=== PATIENT | female | born 1985 | race Caucasian/White ===

== ENCOUNTER 2017-11-21 10:11 | Emergency (ER) | payer BC, OTHER ==
[2017-11-21 10:45] LABS: Urine Blood TRACE (NEG); Urine Glucose NEGATIVE (NEG); Urine Protein NEGATIVE (NEG); Urine Specific Gravity 1.015 (1.005-1.030)
[2017-11-21] MEDS ORDERED: NA CHLORIDE 0.9% 1,000 ML ONE (10:56)
[2017-11-21 11:13] LABS: Absolute Lymphocytes (CBC) 3.1 K/uL (0.7-4.9); Absolute Monocytes 0.5 K/uL (0.1-1.3); Absolute Neutrophil 5.2 K/uL (1.8-8.0); Basophils % 0.7 % (0-1.3); Eosinophils % 1.6 % (0-4.4); Hematocrit 39.3 % (36.0-45.0); Lymphocytes % 34.3 % (15.3-44.8); MCH 29.8 pg (27.0-35.0); Monocytes % 5.9 % (3.3-12.3); RBC Red Blood Cell Count 4.57 M/uL (3.86-4.86)
--- NOTE | 2017-11-21 11:17 | RAD REPORT ---
EXAM DESCRIPTION: RAD - Chest Single View - 11/21/2017 11:12 am CLINICAL HISTORY: CHEST PAIN Chest pain. COMPARISON: No comparisons FINDINGS: Portable technique limits examination quality. The lungs are grossly clear. The heart is normal in size. No displaced fractures. IMPRESSION: No acute intrathoracic process suspected.
[2017-11-21 11:25] LABS: ALT/SGPT 16 U/L (12-78); AST/SGOT 15 U/L (15-37); Albumin 3.8 g/dL (3.4-5.0); Alkaline Phosphatase 74 U/L (45-117); BUN Blood Urea Nitrogen 12 mg/dL (7-18); Bicarbonate 26 mmol/L (21-32); Bilirubin Direct 0.1 mg/dL (0-0.2); Bilirubin Total 0.4 mg/dL (0.2-1.0); CKMB Creatine Kinase MB < 1.0 ng/mL (0.3-3.6); Creatine Phosphokinase 44 U/L (26-192); Glucose Level 93 mg/dL (74-106); Magnesium 2.2 mg/dL (1.8-2.4); NT PRO-BNP 64 pg/mL (<125); Potassium 3.9 mmol/L (3.5-5.1); Sodium Level 140 mmol/L (136-145)
[2017-11-21 11:28] LABS: Barbiturates NEGATIVE (NEGATIVE); Benzodiazepines NEGATIVE (NEGATIVE); Cocaine NEGATIVE (NEGATIVE); METHAMPHETAM NEGATIVE (NEGATIVE); Methadone NEGATIVE (NEGATIVE); Opiates NEGATIVE (NEGATIVE); Phencyclidine NEGATIVE (NEGATIVE); THC Cannibis NEGATIVE (NEGATIVE)
[2017-11-21 11:50] LABS: Protime INR 1.07
--- NOTE | 2017-11-21 12:10 | EKG ---
Test Date: 2017-11-21 Test Time: 10:20:41 Operations Research Group Manager: JAM MEASUREMENT RESULTS: Intervals: Rate: 94 NC: 112 QRSD: 78 QT: 346 QTc: 432 [place]: P: 71 NC: 112 QRS: 53 T: 5 INTERPRETIVE STATEMENTS: Normal sinus rhythm T wave abnormality, consider anterior ischemia Abnormal ECG No previous ECG available for comparison Electronically Signed On 11-21-17 12:10:04 CDT by Kane Del Valle
--- NOTE | 2017-11-21 12:11 | RAD REPORT ---
EXAM DESCRIPTION: RAD - Abdomen 1 View (KUB) - 11/21/2017 12:05 pm CLINICAL HISTORY: Left-sided abdominal pain and flank pain COMPARISON: None. FINDINGS: Bowel gas pattern is non-specific. Air-filled, nondilated small bowel loops are present. N o obstruction, free air or pneumatosis. Moderate volume of stool volume fills but does not dilate the left side of the colon. Small phleboliths seen in the lower right pelvis. No renal or ureteral calcu vargas suspected. No significant bony findings IMPRESSION: KUB examination, as detailed above, without significant or suspicious finding. Nonspecif ic enteritis is possible.
[2017-11-21] MEDS ORDERED: MORPHINE 4 MG/ML SYR ONE (12:16)
[2017-11-21] MEDS ORDERED: ONDANSETRON 4 MG/2 ML VIAL ONE (12:16)
--- NOTE | 2017-11-21 12:16 | EDPHYS ---
Physician Documentation [facility] Name: Shayy Land Age: 32 yrs Sex: Female : 1985 Arrival Date: 11/21/2017 Time: 10:15 Bed 17 Private MD: None, None ED Physician Lobo Lugo HPI: 11/21 10:48 This 32 yrs old Female presents to ER via Ambulatory with complaints of Chest kav Pressure, Numbness Of Arm, Abdominal Pain, Jaw Pain. 10:48 The patient or guardian reports chest pain that is located primarily in the left kav breast. The patient presents with abdominal pain in the left lower quadrant. Onset: The symptoms/episode began/occurred acutely, 2 day(s) ago. The symptoms radiate to the left arm. 10:49 Associated signs and symptoms: Pertinent negatives: diarrhea, fever. The chest pain is kav described as a pressure. Duration: The patient or guardian reports a single episode, that is still ongoing. Severity of pain: At its worst the pain was mild just prior to arrival. The patient has not experienced similar symptoms in the past. The patient has not recently seen a physician. 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 - Social history:: Smoking status: Patient/guardian denies using tobacco, Patient/guardian denies using alcohol. - Ebola Screening: : Patient negative for fever greater than or equal to 101.5 degrees Fahrenheit, and additional compatible Ebola Virus Disease symptoms Patient denies exposure to infectious person Patient denies travel to an Ebola-affected area in the 21 days before illness onset. - Family history:: not pertinent. - Hospitalizations: : No recent hospitalization is reported. ROS: 11:00 Constitutional: Negative for fever, chills, and weight loss, Eyes: Negative for injury, kav pain, redness, and discharge, ENT: Negative for injury, pain, and discharge, Neck: Negative for injury, pain, and swelling, Respiratory: Negative for shortness of breath, cough, wheezing, and pleuritic chest pain, Back: Negative for injury and pain, : Negative for injury, bleeding, discharge, and swelling, MS/Extremity: Negative for injury and deformity, Skin: Negative for injury, rash, and discoloration, Neuro: Negative for headache, weakness, numbness, tingling, and seizure, Psych: Negative for depression, anxiety, suicide ideation, homicidal ideation, and hallucinations, Allergy/Immunology: Negative for hives, rash, and allergies, Endocrine: Negative for neck swelling, polydipsia, polyuria, polyphagia, and marked weight changes, Hematologic/Lymphatic: Negative for swollen nodes, abnormal bleeding, and unusual bruising. 11:00 Cardiovascular: Positive for chest pain, of the left breast. 11:00 Abdomen/GI: Positive for abdominal pain, of the left lower quadrant. Exam: 11:00 Constitutional: This is a well developed, well nourished patient who is awake, alert, kav and in no acute distress. Head/Face: Normocephalic, atraumatic. Eyes: Pupils equal round and reactive to light, extra-ocular motions intact. Lids and lashes normal. Conjunctiva and sclera are non-icteric and not injected. Cornea within normal limits. Periorbital areas with no swelling, redness, or edema. ENT: Nares patent. No nasal discharge, no septal abnormalities noted. Tympanic membranes are normal and external auditory canals are clear. Oropharynx with no redness, swelling, or masses, exudates, or evidence of obstruction, uvula midline. Mucous membranes moist. Neck: Trachea midline, no thyromegaly or masses palpated, and no cervical lymphadenopathy. Supple, full range of motion without nuchal rigidity, or vertebral point tenderness. No Meningismus. Chest/axilla: Normal chest wall appearance and motion. Nontender with no deformity. No lesions are appreciated. Respiratory: Lungs have equal breath sounds bilaterally, clear to auscultation and percussion. No rales, rhonchi or wheezes noted. No increased work of breathing, no retractions or nasal flaring. Back: No spinal tenderness. No costovertebral tenderness. Full range of motion. Skin: Warm, dry with normal turgor. Normal color with no rashes, no lesions, and no evidence of cellulitis. MS/ Extremity: Pulses equal, no cyanosis. Neurovascular intact. Full, normal range of motion. Neuro: Awake and alert, GCS 15, oriented to person, place, time, and situation. Cranial nerves II-XII grossly intact. Motor strength 5/5 in all extremities. Sensory grossly intact. Cerebellar exam normal. Normal gait. Psych: Awake, alert, with orientation to person, place and time. Behavior, mood, and affect are within normal limits. 11:00 Cardiovascular: Rate: normal, Rhythm: regular, Pulses: Pulses are 1+ in right radial artery, right dorsalis pedis artery, left radial artery, left dorsalis pedis artery, left carotid pulse and right carotid pulse. 11:00 ECG was reviewed by the Attending Physician. NSR Vital Signs: 10:23 BP 149 / 97; Pulse 111; Resp 18; Temp 98.9(O); Pulse Ox 98% on R/A; Weight 71.21 kg; hj Height 5 ft. 4 in. (162.56 cm); Pain 5/10; 11:06 BP 105 / 67; Pulse 83; Resp 20; Pulse Ox 100% on 2 lpm NC; Pain 3/10; ed1 12:11 BP 129 / 68; Pulse 82; Resp 18; Pulse Ox 98% on R/A; mh5 12:56 BP 105 / 76; Pulse 82; Resp 20; Temp 97.9(O); Pulse Ox 100% on R/A; Pain 0/10; aj1 10:23 Body Mass Index 26.95 (71.21 kg, 162.56 cm) MDM: 10:42 Medical screening is not applicable. kav 11:05 Data reviewed: vital signs, nurses notes. ED course: HEART Score 0. 11/21 10:42 Order name: Basic Metabolic Panel; Complete Time: 11:38 11/21 10:42 Order name: CBC with Diff; Complete Time: 11:38 11/21 10:42 Order name: Ckmb; Complete Time: 11:38 11/21 10:42 Order name: CPK; Complete Time: 11:38 11/21 10:42 Order name: LFT's; Complete Time: 11:38 11/21 10:42 Order name: Magnesium; Complete Time: 11:38 11/21 10:42 Order name: NT PRO-BNP; Complete Time: 11:38 11/21 10:42 Order name: PT-INR; Complete Time: 12:14 11/21 10:42 Order name: Ptt, Activated; Complete Time: 12:14 11/21 10:42 Order name: Troponin (emerg Dept Use Only); Complete Time: 11:38 11/21 10:44 Order name: Urine Dipstick--Ancillary (enter results); Complete Time: 10:53 eb 11/21 10:44 Order name: Urine --Ancillary (enter results); Complete Time: 10:53 eb 11/21 10:52 Order name: Urine Drug Screen 11/21 10:53 Order name: Urine Drug Screen; Complete Time: 11:38 EDOH 11/21 10:42 Order name: Urine Test (obtain specimen); Complete Time: 10:55 11/21 10:42 Order name: XRAY Chest (1 view); Complete Time: 11:38 11/21 10:42 Order name: EKG; Complete Time: 10:43 11/21 10:42 Order name: Cardiac monitoring; Complete Time: 10:11/21 10:42 Order name: EKG - Nurse/Tech; Complete Time: 11:28 11/21 10:42 Order name: IV Saline Lock; Complete Time: 11:11/21 10:42 Order name: Labs collected and sent; Complete Time: 11:11/21 10:42 Order name: O2 Per Protocol; Complete Time: 10:11/21 10:42 Order name: O2 Sat Monitoring; Complete Time: 10:11/21 10:42 Order name: Urine Dipstick-Ancillary (obtain specimen); Complete Time: 10:11/21 11:40 Order name: Abdomen 1 View (KUB) XRAY; Complete Time: 12:14 kav EC:00 Rate is 94 beats/min. Rhythm is regular. QRS [place] is Normal. NH interval is normal. QRS kav interval is normal. QT interval is normal. No Q waves. T waves are Normal. No ST changes noted. Clinical impression: NSR w/ Non-specific ST/T Changes. Administered Medications: 11:03 Drug: NS 0.9% 1000 ml Route: IV; Rate: 1000 ml; Site: right antecubital; ed1 12:07 Follow up: IV Status: Completed infusion; IV Intake: 1000ml ed1 12:19 Drug: morphine 2 mg Route: IVP; Site: right antecubital; ss 12:58 Follow up: Response: No adverse reaction; Pain is decreased aj1 12:19 Drug: Zofran 4 mg Route: IVP; Site: right antecubital; ss 12:57 Follow up: Response: No adverse reaction; Nausea is decreased aj1 Disposition: 15:33 Co-signature as Attending Physician, Lobo Lugo MD I agree with the assessment and kdr plan of care. Disposition: 11/21/17 12:16 Discharged to Home. Impression: Chest pain, unspecified, Infectious gastroenteritis and colitis, unspecified. - Condition is Stable. - Discharge Instructions: Nonspecific Chest Pain, Chest Wall Pain, Viral Gastroenteritis, Adult, [id number]. - Prescriptions for Ibuprofen 800 mg Oral Tablet - take 1 tablet by ORAL route every 8 hours As needed take with food; 30 tablet. Flagyl 500 mg Oral Tablet - take 1 tablet by ORAL route every 8 hours for 7 days; 21 tablet. Cipro 500 mg Oral Tablet - take 1 tablet by ORAL route every 12 hours for 7 days; 14 tablet. - Medication Reconciliation Form, Thank You Letter, Antibiotic Education, Prescription Opioid Use form. - Follow up: Private Physician; When: 2 - 3 days; Reason: Recheck today's complaints, Continuance of care, Re-evaluation by your physician. Follow up: Kane Del Valle; When: 2 - 3 days; Reason: Recheck today's complaints, Continuance of care, Re-evaluation by your physician. - Problem is new. - Symptoms have improved. Signatures: Dispatcher [employer] EDMS Destiney Rivers RN RN aj1 Lobo Lugo MD MD kdr Vern, Katherine, TRACK SUBWAY REPAIR SUPERVISOR TRACK SUBWAY REPAIR SUPERVISOR Debi Khan RN RN ss Yeimi Fofana LVN SHEET METAL MECHANIC ed1 Arjun Suggs RN RN Corrections: (The following items were deleted from the chart) 12:58 12:16 11/21/2017 12:16 Discharged to Home. Impression: Chest pain, unspecified; aj1 Infectious gastroenteritis and colitis, unspecified. Condition is Stable. Discharge Instructions: Nonspecific Chest Pain, Chest Wall Pain. Prescriptions for Ibuprofen 800 mg Oral Tablet - take 1 tablet by ORAL route every 8 hours As needed take with food; 30 tablet, Prilosec 20 mg Oral Capsule - take 1 capsule by ORAL route once daily; 10 capsule. and Forms are Medication Reconciliation Form, Thank You Letter, Antibiotic Education, Prescription Opioid Use. Follow up: Private Physician; When: 2 - 3 days; Reason: Recheck today's complaints, Continuance of care, Re-evaluation by your physician. Follow up: Kane Del Valle; When: 2 - 3 days; Reason: Recheck today's complaints, Continuance of care, Re-evaluation by your physician. Problem is new. Symptoms have improved. kav
--- NOTE | 2017-11-21 12:16 | ER ---
Nurse's Notes [facility] Name: Shayy Land Age: 32 yrs Sex: Female : 1985 Arrival Date: 11/21/2017 Time: 10:15 Bed 17 Private MD: None, None Diagnosis: Chest pain, unspecified;Infectious gastroenteritis and colitis, unspecified Presentation: 11/21 10:17 Presenting complaint: Patient states: my tooth on my L side and L jaw started hurting hj for 2 weeks and radiates to the L side of my neck; 3-4 days ago, i feel this on and off pressure on my chest and sometimes that pain radiates to my L arm; sometimes it seems like its weak and numb; reports on an off SOB;. Transition of care: patient was not received from another setting of care. Onset of symptoms was November 21, 2017. Risk Assessment: Do you want to hurt yourself or someone else? Patient reports no desire to harm self or others. Initial Sepsis Screen: Does the patient meet any 2 criteria? No. Patient's initial sepsis screen is negative. Does the patient have a suspected source of infection? No. Patient's initial sepsis screen is negative. Care prior to arrival: None. 10:17 Method Of Arrival: Ambulatory 10:17 Acuity: RANCHO 3 Triage Assessment: 10:21 General: Appears in no apparent distress. uncomfortable, Behavior is calm, cooperative, hj appropriate for age. Pain: Complains of pain in chest Pain radiates to left arm Pain currently is 5 out of 10 on a pain scale. Cardiovascular: Reports chest pain, Capillary refill < 3 seconds Patient's skin is warm and dry. 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 - Social history:: Smoking status: Patient/guardian denies using tobacco, Patient/guardian denies using alcohol. - Ebola Screening: : Patient negative for fever greater than or equal to 101.5 degrees Fahrenheit, and additional compatible Ebola Virus Disease symptoms Patient denies exposure to infectious person Patient denies travel to an Ebola-affected area in the 21 days before illness onset. - Family history:: not pertinent. - Hospitalizations: : No recent hospitalization is reported. Screenin:22 Abuse screen: Denies threats or abuse. Denies injuries from another. Nutritional hj screening: No deficits noted. Tuberculosis screening: No symptoms or risk factors identified. Fall Risk None identified. Assessment: 10:22 Pain: Pain began 2-3 days ago. hj 10:40 General: Appears uncomfortable, Behavior is calm, cooperative. Pain: Complains of pain ed1 in left ear, chest and left arm Pain does not radiate. Pain currently is 2 out of 10 on a pain scale. Quality of pain is described as sharp, stabbing, Pain began 2-3 days ago. Is intermittent, episodic. Neuro: Level of Consciousness is awake, alert, obeys commands, Oriented to person, place, time, situation, Production Supervisor are equal bilaterally Moves all extremities. Full function Gait is steady, Speech is normal, Facial symmetry appears normal, Pupils are PERRLA, Numbness in left upper arm Reports numbness in left upper arm Denies blurred vision dizziness, headache. Cardiovascular: Reports chest pain, Denies diaphoresis, fatigue, lightheadedness, nausea, palpitations, shortness of breath, syncope, vomiting, Heart tones S1 S2 present Capillary refill < 3 seconds in bilateral fingers Clubbing of nail beds is absent JVD is absent Patient's skin is warm and dry. Rhythm is regular Chest pain is described as mild, quality is pressure, radiates to left arm(s). Respiratory: Airway is patent Respiratory effort is even, unlabored, Respiratory pattern is regular, symmetrical, Breath sounds are clear bilaterally. Denies cough, shortness of breath. GI: Patient currently denies diarrhea, nausea, vomiting. : No signs and/or symptoms were reported regarding the genitourinary system. EENT: Reports left ear pain. Derm: Skin is intact, is healthy with good turgor, Skin is dry, Skin is normal, Skin temperature is warm. 10:45 Reassessment: Upon initial IV attempt pt became light headed and diaphoretic. BP 76/39 ed1 HR 129. Pt placed in supine, cool compress applied, O2 applied. 10:45 General: The previous assessment is accurate. Call light remains within reach. . ss 11:06 Reassessment: Patient and/or family updated on plan of care and expected duration. Pain ed1 level reassessed. Patient is alert, oriented x 3, equal unlabored respirations, skin warm/dry/pink. Respiratory: Airway is patent Respiratory effort is even, unlabored, Respiratory pattern is regular, symmetrical. Derm: Skin is pink, warm \T\ dry. 12:56 Reassessment: Patient appears in no apparent distress at this time. Patient and/or aj1 family updated on plan of care and expected duration. Pain level reassessed. Patient is alert, oriented x 3, equal unlabored respirations, skin warm/dry/pink. Patient denies pain at this time. Patient states feeling better. Patient states symptoms have improved. Vital Signs: 10:23 BP 149 / 97; Pulse 111; Resp 18; Temp 98.9(O); Pulse Ox 98% on R/A; Weight 71.21 kg; hj Height 5 ft. 4 in. (162.56 cm); Pain 5/10; 11:06 BP 105 / 67; Pulse 83; Resp 20; Pulse Ox 100% on 2 lpm NC; Pain 3/10; ed1 12:11 BP 129 / 68; Pulse 82; Resp 18; Pulse Ox 98% on R/A; mh5 12:56 BP 105 / 76; Pulse 82; Resp 20; Temp 97.9(O); Pulse Ox 100% on R/A; Pain 0/10; aj1 10:23 Body Mass Index 26.95 (71.21 kg, 162.56 cm) ED Course: 10:15 Patient arrived in ED. mr 10:16 None, None is Private Physician. mr 10:21 Triage completed. hj 10:22 Arm band placed on right wrist. hj 10:22 front desk monitor on. Pulse ox on. NIBP on. hj 10:23 Patient has correct armband on for positive identification. Placed in gown. Bed in low hj position. Call light in reach. Side rails up X 1. 10:23 Patient maintains SpO2 saturation greater than 95% on room air. hj 10:28 EKG done, by rv repair technician. reviewed by Lobo Lugo MD. at1 10:32 Diana Fuentes FNP is PHCP. kav 10:33 Lobo Lugo MD is Attending Physician. kav 10:36 Yeimi Fofana LVN is Primary Nurse. ed1 10:55 Troponin (emerg Dept Use Only) Sent. mh5 10:56 Initial lab(s) drawn, by me, sent to lab. Missed attempt(s): 20 gauge in left [facility] antecubital area. 10:57 Placed in gown. Bed in low position. Call light in reach. Side rails up X2. Warm [facility] blanket given. front desk monitor on. Pulse ox on. NIBP on. 11:07 Urine Drug Screen Sent. 5 11:07 Urine Drug Screen Sent. [facility] 11:07 NT PRO-BNP Sent. [facility] 11:07 Magnesium Sent. [facility] 11:07 LFT's Sent. [facility] 11:07 CPK Sent. [facility] 11:07 Ckmb Sent. [facility] 11:07 CBC with Diff Sent. [facility] 11:07 Basic Metabolic Panel Sent. [facility] 11:07 Initial lab(s) drawn, by ED staff, sent to lab. Inserted saline lock: 20 gauge in right ed1 antecubital area, using aseptic technique. Blood collected. 11:11 X-ray completed. Portable x-ray completed in exam room. Patient tolerated procedure jb2 well. 11:12 XRAY Chest (1 view) In Process Unspecified. EDMS 11:57 X-ray completed. Patient moved to radiology via wheelchair. jb2 12:02 Abdomen 1 View (KUB) XRAY In Process Unspecified. EDMS 12:02 X-ray completed. Patient tolerated procedure well. jb2 12:03 Patient moved back from radiology. jb2 12:15 Kane Del Valle MD is Referral Physician. kav 12:56 No provider procedures requiring assistance completed. IV discontinued, intact, aj1 bleeding controlled, No redness/swelling at site. Pressure dressing applied. Administered Medications: 11:03 Drug: NS 0.9% 1000 ml Route: IV; Rate: 1000 ml; Site: right antecubital; ed1 12:07 Follow up: IV Status: Completed infusion; IV Intake: 1000ml ed1 12:19 Drug: morphine 2 mg Route: IVP; Site: right antecubital; ss 12:58 Follow up: Response: No adverse reaction; Pain is decreased aj1 12:19 Drug: Zofran 4 mg Route: IVP; Site: right antecubital; ss 12:57 Follow up: Response: No adverse reaction; Nausea is decreased aj1 Intake: 12:07 IV: 1000ml; Total: 1000ml. ed1 Outcome: 12:16 Discharge ordered by MD. oconnell 12:56 Discharged to home ambulatory, with family. aj1 12:56 Condition: good 12:56 Discharge instructions given to patient, Instructed on discharge instructions, follow up and referral plans. medication usage, Demonstrated understanding of instructions, follow-up care, medications, Prescriptions given X 3. 12:58 Patient left the ED. aj1 Signatures: Dispatcher [employer] EDMS Destiney Rivers, RN RN aj1 Diana Fuentes, LINE DEPARTMENT SUPERVISOR LINE DEPARTMENT SUPERVISOR Reyna Romero mr Cai Chepe jb2 Debi Mcbride, RN RN Yeimi Fofana, LABEL REWINDER LABEL REWINDER ed1 Zhane hurst, measurement and sensing technician EKG Tat1 Arjun Suggs, RN RN Reyna Kennedy [facility] Corrections: (The following items were deleted from the chart) 11:58 11:57 Patient taken to ultrasound. via wheelchair. jb2 jb2
== END 2017-11-21 12:58 | disposition home or self-care (01) ==
LOC: ER 10:11
DX: A09 Infectious gastroenteritis and colitis, unspecified (principal)
CPT/HCPCS: 36415; 71045; 74018; 80048; 80076; 80307; 81003; 81025; 82550; 82553; 83735; 83880; 84484; 85025; 85610; 85730; 93005; 96361; 96374; 96375; 99285; J2405; J7030

== ENCOUNTER 2018-09-15 18:02 | Emergency (ER) | payer BC, OTHER ==
--- OUTSIDE RECORDS SUMMARY | 2018-09-15 18:07 | XMS REPORT ---
:1985 [facility] Address [address] [place] [address] Care Team Providers Name Role Phone Unavailable Unavailable Unavailable Payers Payer Name Policy Type Policy Number Effective Date Expiration Date Problems This patient has no known problems. Allergies, Adverse Reactions, Alerts This patient has no known allergies or adverse reactions. Medications This patient has no known medications. Results Test Description Test Time Test Comments Text Results Atomic Results Result Comments - 2018-08-22 Patient Name: HARRY SINCLAIR Unit No: [id number] 10:42:00 EXAMS: CPT CODE: LTD [id number] LTD [address] [facility] [address] [place], [place] [address] LIMITED OBSTETRICAL ULTRASOUND REPORT Pat. Name: HARRY SINCLAIR Pat. No: [id number] Study Date: 08/22/2018 10:06am , Age: 05 1985, 32 Pregnancies: 2, Para 1 LMP: 02/03/2018 GA by LMP: 28w4d GA by 1st: 28w4d GA Selected: 28w4d (From First S) SHRADDHA: 11/10/2018 Referring MD: Alondra Montes Lead Pastor: Mireille Salgado RDMS CPT4: USPREGLTD Admitting MD: Alondra Montes Hist/Ind: 2ND SCAN MARGINAL PLACENTA Cervical Length: 4.3 cm Heart Rate: 141 bpm Amniotic Fluid Index: 14.4cm (09.3-23.0) Q1: 1.3cm Q2: 4.3cm Q3: 4.4cm Q4: 4.4cm MATERNAL ANATOMY Ovaries LxHxW (cm) Right 2.7 x 2.3 x 3.1 Vol: 10.1cc Left 4.0 x 1.4 x 3.6 Vol: 10.6cc CLINICAL SUMMARY Type of Gestation: Ribera Intrauterine in vertex presentation. motion and organs seen: heart motion seen Placental location: Anterior Placental maturity : Grade 2 There is no evidence of placenta previa. Placental edge is >3 cm from os Amniotic fluid volume is normal. Uterus and adnexa: No significant abnormality is seen. Cervix length 4.3 cm. Radha Gorman M.D. Electronic Signature 08/22/2018 10:42am [facility] NAME[facility] Radiology Department PHYS: Alondra Montes [address] : 1985 AGE: 32 SEX: F [place], [place] [address] LOC: Rossy.RAD PHONE #: [phone] EXAM DATE: 08/22/2018 STATUS: REG CLI FAX #: [phone] RAD NO: Page 1 Signed Report (CONTINUED) Patient Name: CHAITANYA SINCLAIRA Unit No: [id number] EXAMS: CPT CODE: [id number] [place] LTD [address]3845 <Continued> at 1042 Reported and signed by: Radha Gorman MD CC: Alondra Montes MD Technologist: Mireille Salgado RDMS Probe: Trnscrbd D/ (1042) t.NMG Orig Print D/T: S: 08/22/2018 (1042) [facility] NAME: [facility] Radiology Department PHYS: Alondra Montes [address] : 1985 AGE: 32 SEX: F [place], [place] [address] LOC: Rossy.RAD PHONE #: [phone] EXAM DATE: 08/22/2018 STATUS: REG CLI FAX #: [phone] RAD NO: Page 2 Signed Report Patient Name: HARRY SINCLAIR Unit No: [id number] EXAMS: CPT CODE: [id number] [place] LTD [address]80 <Continued> [facility] NAME: [facility] Radiology Department PHYS: [facility] Alondra Montes [address] : 1985 AGE: 32 SEX: [place], [place] [address] LOC: JAMIE PHONE #: [phone] EXAM DATE: 08/22/2018 STATUS: ASHLEY GARCIA FAX #: [phone] RAD NO: Page 3 Signed Report - US PREG 2018-06-12 Patient Name: HARRY SINCLAIR Unit No : [id number] UT 12:13:00 EXAMS: CPT CODE: TRANSVAGIN [id number] US PREG [place] TRANSVAGINAL [address] [facility] [address] [place], [place] [address] OBSTETRICAL ULTRASOUND REPORT Pat. Name: HARRY SINCLAIR Pat. No: [id number] Study Date: 06/12/2018 10:51am , Age: 05 1985, 32 Pregnancies: 2, Para 1 LMP: 02/03/2018 GA by LMP: 18w3d GA by US: 17w5d GA Selected: 18w3d (LMP) SHRADDHA: 11/10/2018 Referring MD: Alondra Montes Lead Pastor: Shilpa Stevens RDMS CPT4: USPRUTTRVG Admitting MD: Alondra Montes Hist/Ind: SUPERVISION OF NORMAL SCAN 1 MEASUREMENTS AGE GROWTH EVALUATION Measurement GA Range Srce %for GA Ratios ----- ---- ------- BPD 4.0 cm 18w0d (80d2h-54u2e) Hadl BPD 35% FL/BPD 0.63 HC 14.8 cm 17w6d (16d3c-18q5i) Hadl HC 33% FL/AC 0.21 APD 3.8 cm APD HC/AC 1.24 (1.07 - 1.26) TAD 3.8 cm TAD CI 0.81 (0.70 - 0.86) AC 11.9 cm 17w2d (56u2t-63t2z) Hadl AC 24% FL 2.5 cm 17w2d (85x2u-02q5m) Hadl FL <05 HL 2.5 cm 18w0d (14f2o-21n7i) Seth HL 42% GA for sonogram 17w5d (66v2t-35v7u) Weight Estimate: based on (HL,BPD,HC,AC,FL) Avg Weight: 206 gm (176-236) Hadlock : 0lbs, 7oz Cervical Length: 3.3 cm Heart Rate: 148 bpm MATERNAL ANATOMY Ovaries LxHxW (cm) Left 2.9 x 1.7 x 1.7 Vol: 4.4cc CLINICAL SUMMARY Type of Gestation: Ribera Intrauterine in vertex presentation. size is appropriate for gestational age by weight. growth: Consistent with normal growth motion and organs seen: heart motion seen somatic activity observed body and limb movements seen Four chamber heart observed [facility] NAME: HARRY SINCLAIR Radiology Department PHYS: R[facility] Alondra Montes [address] : 1985 AGE: 32 SEX: [place] [address] LOC: JAMIE PHONE #: [phone] EXAM DATE: 06/12/2018 STATUS: DEP CLI FAX #: [phone] RAD NO: Page 1 Signed Report (CONTINUED) Patient Name: HARRY SINCLAIR Unit No: [id number] EXAMS: CPT CODE: [id number] [facility] TRANSVAGINAL [address] <Continued> Left ventricular outflow tract (LVOT) seen Right ventricular outflow tract (RVOT) seen Regular cardiac rhythm observed Normal intracranial anatomy seen Umbilical cord insertion in fetus seen stomach, Renal Fossa, Bladder and Spine seen Three vessel umbilical cord noted Choroid plexus cysts are noted Echogenic intracardiac focus seen abnormalities observed: None seen at this exam Placental location: Anterior Placental maturity : Grade 1 There is MARGINAL/PARTIAL placenta previa. Amniotic fluid volume is normal. Uterus and adnexa: No significant abnormalities seen FOLLOW UP FOR PLACENTAL POSITION IS RECOMMENDED CLOSER TO TERM. Thank you for allowing us to participate in the care of this patient. Janak Verma M.D. Electronic Signature 06/12/2018 12:13pm at 1213 Reported and signed by: Marisol Verma MD CC: Technologist: Shilpa Stevens RDMS Probe: [id number] Trnscrbd D/ (1211) [email or web address] Orig Print D/T: S: 06/16/2018 (7754) [facility] NAME: HARRY SINCLAIR Radiology Department PHYS: [place] Alondra Montes [address] : 1985 AGE: 32 SEX: [place] [address] LOC: LeonRAD PHONE #: [phone] EXAM DATE: 06/12/2018 STATUS: DEP CLI FAX #: [phone] RAD NO: Page 2 Signed Report Patient Name: HARRY SINCLAIR Unit No: [id number] EXAMS: CPT CODE: [id number] US PREG [place] TRANSVAGINAL [address] <Continued> [facility] NAME: HARRY SINCLAIR Radiology Department PHYS: [facility] Alondra Montes [address] : 1985 AGE: 32 SEX: [place] [address] LOC: LeonRAD PHONE #: [phone] EXAM DATE: 06/12/2018 STATUS: DEP CLI FAX #: [phone] RAD NO: Page 3 Signed Report - US PREG 2018-06-12 Patient Name: HARRY SINCLAIR Unit No : [id number] AFTER 12:13:00 EXAMS: CPT CODE: TRI [id number] US PREG AFTER TRI [address] [facility] [address] [place], [place] [address] OBSTETRICAL ULTRASOUND REPORT Pat. Name: HARRY SINCLAIR Pat. No: [id number] Study Date: 06/12/2018 10:51am , Age: 05 1985, 32 Pregnancies: 2, Para 1 LMP: 02/03/2018 GA by LMP: 18w3d GA by US: 17w5d GA Selected: 18w3d (LMP) SHRADDHA: 11/10/2018 Referring MD: ALONDRA MONTES Lead Pastor: Shilpa Stevens RDMS CPT4: [id number] Admitting MD: ALONDRA MONTES Hist/Ind: SUPERVISION OF NORMAL SCAN 1 MEASUREMENTS AGE GROWTH EVALUATION Measurement GA Range Srce %for GA Ratios ----- ---- ------- BPD 4.0 cm 18w0d (02d6e-29y7i) Hadl BPD 35% FL/BPD 0.63 HC 14.8 cm 17w6d (47e1z-59t0n) Hadl HC 33% FL/AC 0.21 APD 3.8 cm APD HC/AC 1.24 (1.07 - 1.26) TAD 3.8 cm TAD CI 0.81 (0.70 - 0.86) AC 11.9 cm 17w2d (32x0d-28t9i) Hadl AC 24% FL 2.5 cm 17w2d (08d4x-16n9m) Hadl FL <05 HL 2.5 cm 18w0d (56k1m-71e6z) Seth HL 42% GA for sonogram 17w5d (66q5k-56d9v) Weight Estimate: based on (HL,BPD,HC,AC,FL) Avg Weight: 206 gm (176-236) Hadlock : 0lbs, 7oz Cervical Length: 3.3 cm Heart Rate: 148 bpm MATERNAL ANATOMY Ovaries LxHxW (cm) Left 2.9 x 1.7 x 1.7 Vol: 4.4cc CLINICAL SUMMARY Type of Gestation: Ribera Intrauterine in vertex presentation. size is appropriate for gestational age by weight. growth: Consistent with normal growth motion and organs seen: heart motion seen somatic activity observed body and limb movements seen Four chamber heart observed [facility] NAME: HARRY SINCLAIR Radiology Department PHYS: Alondra [address] : 1985 AGE: 32 SEX: F [place], [place] [address] LOC: LeonRAD PHONE #: [phone] EXAM DATE: 06/12/2018 STATUS: REG CLI FAX #: [phone] RAD NO: Page 1 Signed Report (CONTINUED) Patient Name: HARRY SINCLAIR Unit No: [id number] EXAMS: CPT CODE: [id number] US PREG AFTER 1ST TRI 94676 <Continued> Left ventricular outflow tract (LVOT) seen Right ventricular outflow tract (RVOT) seen Regular cardiac rhythm observed Normal intracranial anatomy seen Umbilical cord insertion in fetus seen stomach, Renal Fossa, Bladder and Spine seen Three vessel umbilical cord noted Choroid plexus cysts are noted Echogenic intracardiac focus seen abnormalities observed: None seen at this exam Placental location: Anterior Placental maturity : Grade 1 There is MARGINAL/PARTIAL placenta previa. Amniotic fluid volume is normal. Uterus and adnexa: No significant abnormalities seen FOLLOW UP FOR PLACENTAL POSITION IS RECOMMENDED CLOSER TO TERM. Thank you for allowing us to participate in the care of this patient. Janak Verma M.D. Electronic Signature 06/12/2018 12:13pm at 1213 Reported and signed by: Marisol Verma MD CC: Technologist: Shilpa Stevens RDMS Probe: Trnscrbd D/ (0803) [email or web address] Orig Print D/T: S: 06/12/2018 (4883) [facility] NAME: CHAITANYA SINCLAIRA Radiology Department PHYS: [facility] [address] : 1985 AGE: 32 SEX: F [place] [address] LOC: LeonRAD PHONE #: [phone] EXAM DATE: 06/12/2018 STATUS: REG CLI FAX #: [phone] RAD NO: Page 2 Signed Report Patient Name: HARRY SINCLAIR Unit No: [id number] EXAMS: CPT CODE: [id number] US PREG AFTER 1ST TRI 69584 <Continued> [facility] Radiology Department PHYS: [facility] Simon[facility] A [address] : 1985 AGE: 32 SEX: F [place] [address] LOC: LeonRAD PHONE #: [phone] EXAM DATE: 06/12/2018 STATUS: REG CLI FAX #: [phone] RAD NO: Page 3 Signed Report
--- NOTE | 2018-09-15 19:06 | ER ---
Nurse's Notes [facility] Name: Shayy Land Age: 32 yrs Sex: Female : 1985 Arrival Date: 09/15/2018 Time: 18:05 Bed Waiting Private MD: Diagnosis: Presentation: 09/15 18:18 Presenting complaint: Patient states: "It happened earlier, I was sitting at my desk aj1 and I was working and all the sudden I felt weak. light-headed and flushed and I felt like I was going to pass out. It went away, but then it happened again on my way home." Patient reports that she is currently 32 weeks , has not had any major complications this . Transition of care: patient was not received from another setting of care. Onset of symptoms was September 15, 2018 at 13:00. Risk Assessment: Do you want to hurt yourself or someone else? Patient reports no desire to harm self or others. Initial Sepsis Screen: Does the patient meet any 2 criteria? HR > 90 bpm. No. Patient's initial sepsis screen is negative. Does the patient have a suspected source of infection? No. Patient's initial sepsis screen is negative. Care prior to arrival: None. 18:18 Method Of Arrival: Ambulatory aj1 18:18 Acuity: RANCHO 3 aj1 Triage Assessment: 18:20 General: Appears in no apparent distress. comfortable, Behavior is calm, cooperative, aj1 appropriate for age. Pain: Denies pain. Neuro: Level of Consciousness is awake, alert, obeys commands, Oriented to person, place, time, situation. Neuro: Reports dizziness, weakness. Cardiovascular: Patient's skin is warm and dry. Respiratory: Airway is patent Respiratory effort is even, unlabored, Respiratory pattern is regular, symmetrical. LINK TRAINER: 18:20 LMP 02/03/2018 aj1 Historical: - Allergies: 18:20 No Known Allergies; aj1 - Home Meds: 18:20 None [Active]; aj1 - PMHx: 18:20 None; aj1 - PSHx: 18:20 None; aj1 - Immunization history:: Flu vaccine is not up to date. - Social history:: Smoking status: Patient/guardian denies using tobacco. - Ebola Screening: : Patient denies travel to an Ebola-affected area in the 21 days before illness onset. Vital Signs: 18:20 BP 128 / 61; Pulse 93; Resp 18; Temp 98.4; Pulse Ox 98% on R/A; Weight 83.91 kg (R); aj1 Height 5 ft. 4 in. (162.56 cm) (R); Pain 0/10; 18:20 Body Mass Index 31.75 (83.91 kg, 162.56 cm) aj1 ED Course: 18:05 Patient arrived in ED. as 18:20 Triage completed. aj1 18:20 Arm band placed on Patient placed in waiting room, Patient notified of wait time. aj1 18:34 Patient's name was called from ER lobby. No response. aj1 18:45 Patient's name was called from ER lobby. No response. aj1 19:05 Patient's name was called from ER lobby. No response. Unable to locate patient. Will aj1 disposition as left without being seen by a provider. Administered Medications: No medications were administered Outcome: 19:06 Patient left the ED. aj1 Signatures: Destiney Rivers, RN RN aj1 Amy Kennedy as
== END 2018-09-15 19:06 | disposition left against medical advice (07) ==
LOC: ER 18:02
DX: O26.893 Other specified pregnancy related conditions, third trimester (principal); R42 Dizziness and giddiness; Z3A.32 32 weeks gestation of pregnancy; Z53.21 Procedure and treatment not carried out due to patient leaving prior to being seen by health care provider
CPT/HCPCS: 99281